=== PATIENT | female | born 1950 | race Caucasian/White ===

== ENCOUNTER → 2017-12-14 12:02 | Outpatient (CLI) | payer OTHER, SELFPAY | PROVIDERS: Visit Provider Nurse Practitioner Family | DX: Z79.899 Other long term (current) drug therapy (principal) ==

== ENCOUNTER → 2018-06-21 11:39 | Outpatient (CLI) | payer MEDICARE, SELFPAY ==
[2018-06-21 13:46] LABS: Amphetamine/Metha Screen,Urine Negative ng/mL (<1000); Barbiturates Screen,Urine Negative ng/mL (<200); Benzodiazepines Screen,Urine Negative ng/mL (<200); Cannabinoid Screen,Urine Negative ng/mL (<50); Cocaine Screen,Urine Negative ng/mL (<300); Methadone Screen,Urine Negative ng/mL (<300); Opiate Screen,Urine Negative ng/mL (<300); Phencyclidine Screen,Urine Negative ng/mL (<25)
== END ==
PROVIDERS: Visit Provider Nurse Practitioner Family
DX: Z79.899 Other long term (current) drug therapy (principal)
CPT/HCPCS: 80305

== ENCOUNTER → 2018-08-30 12:36 | Outpatient (CLI) | payer MEDICARE, SELFPAY ==
--- NOTE | 2018-08-30 12:51 | CI_ITS ---
Cerebrovascular Exam Indications: 780.4 Dizziness and giddiness. IMPRESSIONS 1. The bilateral vertebral arteries are patent with normal antegrade flow. 2. Study suggests less than 20% stenosis involving the right internal carotid artery and the left internal carotid artery. 3. Tortuous carotid arteries seen bilaterally. Carotid duplex study. Complete study and Doppler flow study including spectral analysis, color and kinney scale imaging. Height: Height: 162.6cm. Height: 64in. Weight: Weight: 76.7kg. Weight: 168.6lb. Body mass index: BMI: 29kg/m^2. Body surface area: BSA: 1.88m^2. Location: Vascular laboratory. Patient status: Outpatient. Tables: Arterial flow: + +--------+--------+ Location V sys V ed + +--------+--------+ Right CCA - proximal 74.6cm/s 18.9cm/s + +--------+--------+ Right CCA - distal 63.6cm/s 16.5cm/s + +--------+--------+ Right ECA 84.1cm/s -------- + +--------+--------+ Right ICA - proximal 58.1cm/s 19.6cm/s + +--------+--------+ Right ICA - mid 78.6cm/s 25.9cm/s + +--------+--------+ Right ICA - distal 89.6cm/s 33cm/s + +--------+--------+ Right vertebral 44.8cm/s -------- + +--------+--------+ Left CCA - proximal 77cm/s 20.4cm/s + +--------+--------+ Left CCA - distal 70.7cm/s 18.9cm/s + +--------+--------+ Left ECA 86.4cm/s -------- + +--------+--------+ Left ICA - proximal 57.4cm/s 18.9cm/s + +--------+--------+ Left ICA - mid 69.9cm/s 25.9cm/s + +--------+--------+ Left ICA - distal 75.4cm/s 31.4cm/s + +--------+--------+ Left vertebral 42.4cm/s -------- + +--------+--------+ Velocity ratios: + + + + + + Right, V sys Right, V ed Left, V sys Left, V ed + + + + + + Max ICA/dist CCA 1.41 2 1.07 1.66 + + + + + + (Report amended ) Electronically signed by: Jules Emery [id number]
== END ==
PROVIDERS: Family Provider Internal Medicine Adolescent Medicine; PCP Nurse Practitioner Family; Visit Provider Nurse Practitioner Family
DX: R42 Dizziness and giddiness (principal)
CPT/HCPCS: 93880

== ENCOUNTER → 2018-08-31 14:22 | Outpatient (CLI) | payer MEDICARE, SELFPAY ==
--- NOTE | 2018-08-31 14:25 | MR_ITS ---
MR head/brain wo con HISTORY: Dizziness, vertigo, lightheadedness ITS.REASON: DIZZINESS AND GIDDINESS ORDERING PHYSICIAN: Meme Pat PATIENT AGE: 68 years Comparison: None TECHNIQUE: Standard multiplanar multiecho sequences are performed without contrast. FINDINGS: No midline shift, mass effect, intracranial hemorrhage, or hydrocephalus is evident. There is no evidence of acute infarction. There are scattered periventricular and subcortical T2 white matter hyperintensities which may be related to ischemic gliotic change from microvascular disease. The cerebellopontine angles, cerebellum, and brainstem are unremarkable. There is increased T2 signal involving the right mastoid sinus and the apex of the petrous bone. The semicircular canals on the right are not quite as well-defined as those on the left and could be related to adjacent fluid within the petrous bone. Consider high-resolution CT of the temporal bone for more thorough evaluation. No sinus air-fluid levels evident. The pituitary and optic chiasm and cerebellar tonsils are unremarkable. In the atrium of the right lateral ventricle there is an oval area of T1 isointensity and T2 hyperintensity which does show some increased signal on the diffusion-weighted images and is isointense on the FLAIR images. This measures 9 mm. This is without mass effect and is of questionable clinical significance. IMPRESSION: 1. Right mastoid effusion with increased T2 signal in the right petrous bone as well which could be related to underlying opacification. The semicircular canals on the right are not as well-defined as on the left side. Suggest high resolution temporal bone CT for more thorough evaluation without and with contrast 2. Nonspecific periventricular T2 white matter hyperintensities consistent with ischemic gliotic change from microvascular disease 3. 9 mm lesion of the trigone of the right ventricle. Differential diagnosis would include a subependymoma or choroid plexus papilloma versus a cystic lesion of the choroid plexus or arachnoid cyst. Consider follow-up in 3 months without and with contrast to confirm short-term stability. This is without mass effect. There is no hydrocephalus.
== END ==
PROVIDERS: Family Provider Internal Medicine Adolescent Medicine; PCP Nurse Practitioner Family; Visit Provider Nurse Practitioner Family
DX: R42 Dizziness and giddiness (principal)
CPT/HCPCS: 70551

== ENCOUNTER → 2019-01-10 13:38 | Outpatient (CLI) | payer MEDICARE, SELFPAY ==
--- NOTE | 2019-01-10 | CT_ITS ---
CT facial bones wo/w con CLINICAL INDICATION: Right-sided mastoiditis, vertigo ITS.REASON: ACUTE MASTOIDITIS ORDERING PHYSICIAN: Meme BARRON PATIENT AGE: 68 years COMPARISON: none TECHNIQUE:Axial images obtained without and with 75 mL's Optiray 320 with sagittal and coronal reformats. All CT scans at the facility use one or more dose reduction, viz: automated exposure control, ma/kV adjustment per patient size (including targeted exams where dose is matched to indication, i.e. head), or iterative reconstruction technique. FINDINGS: There is near complete opacification of the right mastoid sinus with suspected air-fluid level. No gross bony erosive changes are evident. There is mild opacification of the epitympanum,. No definite erosion of the scutum. Right middle ear is also opacified. There is aeration of the auditory canal. Nonspecific pinna calcification is noted bilaterally. The middle ear ossicles are grossly unremarkable. There are mild osteoarthritic changes of the TMJs on both sides. The orbits are unremarkable. Scattered small nodes are present in the neck. The internal auditory canals are symmetric with no obvious enhancing mass. IMPRESSION: Right mastoiditis with opacification of the right middle ear.
[2019-01-10 14:45] LABS: Blood Urea Nitrogen 10 mg/dL (7-18); Creatinine,Serum 0.72 mg/dL (0.55-1.02); Estimated Glomerular Filt Rate 81 ml/min (>60); GFR (African American) 98 ML/MIN (>60)
== END ==
PROVIDERS: PCP Nurse Practitioner Family; Visit Provider Nurse Practitioner Family
DX: Z01.812 Encounter for preprocedural laboratory examination (principal); H70.001 Acute mastoiditis without complications, right ear
CPT/HCPCS: 36415; 70488; 82565; 84520

== ENCOUNTER → 2019-09-01 12:43 | Outpatient (CLI) | payer MEDICARE, SELFPAY | PROVIDERS: PCP Nurse Practitioner Family; Referring Provider Nurse Practitioner; Visit Provider Nurse Practitioner Family | DX: Z71.3 Dietary counseling and surveillance (principal); E11.65 Type 2 diabetes mellitus with hyperglycemia | CPT/HCPCS: 97802 ==

== ENCOUNTER → 2019-12-05 15:43 | Outpatient (CLI) | payer MEDICARE, SELFPAY ==
--- NOTE | 2019-12-05 15:47 | MM_ITS ---
PROCEDURE: MM DIG SCREENING MAMM BI W/CAD CLINICAL INDICATION: SCREENING There is no personal or family history of breast cancer. COMPARISON: None, this is a baseline exam TECHNIQUE: Standard CC and MLO images and 3D Tomosynthesis was obtained. R2 CAD reviewed. FINDINGS: Moderate somewhat heterogenic fibroglandular densities are seen in the central portions of both breast. There are are a few benign-appearing microcalcifications in each breast. There is a benign-appearing nodular density near the axillary tail right breast. There are fatty replaced nodes in both axilla. There is no suspicious lesion and no suspicious microcalcifications. IMPRESSION: Moderate breast density with no suspicious lesions seen BI-RAD Category: 2 Benign Finding(s) FOLLOW-UP: 1YR 1 Year Follow-up (A letter has been sent to the patient regarding results of the study.) Dictated by: Dr. Gasper Andujar MD 12/12/2019 10:[address] Gasper Andujar MD in [place] 12/12/2019 10:50
== END ==
PROVIDERS: PCP Nurse Practitioner; Visit Provider Nurse Practitioner
DX: Z12.31 Encounter for screening mammogram for malignant neoplasm of breast (principal)
CPT/HCPCS: 77063; 77067

== ENCOUNTER → 2020-04-06 08:18 | Outpatient (CLI) | payer MEDICARE, SELFPAY ==
[2020-04-06 11:03] LABS: Coronavirus 19 IgG Antibody Negative (Negative); Coronavirus 19 IgM Antibody Negative (Negative)
== END ==
PROVIDERS: Visit Provider Internal Medicine Gastroenterology
DX: Z01.818 Encounter for other preprocedural examination (principal); Z12.11 Encounter for screening for malignant neoplasm of colon
CPT/HCPCS: 36415; 86328

== ENCOUNTER 2020-04-09 09:58 | Day surgery (SDC) | payer MEDICARE, SELFPAY ==
--- NOTE | 2020-04-05 10:23 | SUR.PREOP ---
04/05/2020 @ 1023--PHONE CALL MADE TO PATIENT. PATIENT UNDERSTANDS THAT LAB WORK AND COVID TESTING NEEDS TO BE COMPLETED @ 0800 ON 04/06/2020. PATIENT UNDERSTANDS IF LAB WORK AND COVID-19 TESTS ARE NOT COMPLETED BY 12PM ON THAT DATE, THE SURGERY SCHEDULED WILL BE CANCELLED AND RESCHEDULED FOR ANOTHER TIME.
[2020-04-05 13:30] VITALS: BMI 29.5
[2020-04-09] VITALS (7 sets, daily range): BP systolic 79–182; BP diastolic 54–90; PULSE 64–86; RESP 16–18; TEMP 36.2; O2SAT 93–98
[2020-04-09 10:33] LABS: POC Glucose,Bedside 157 (70-110)
--- NOTE | 2020-04-09 10:44 | HMH.ANESCL ---
[facility] Anesthesia Checklist - Patient Identification Patient Identification: Arm Band, Verbal (Name & ) - Structural Data Admitted From: Home Planned Operative Procedure/s: Colonoscopy Consent for Planned Operative Procedure(s) Verified: Yes Verified Documents: Surgical Consent, History and Physical - NPO Status Verified Time NPO: 00:00 - Chart Verification Results Verified: None (serology) - Additional verifications Anesthesia Reactions: No Hx Blood Transfusions: No Blood Transfusion Reaction: No - Airway Assessment C-Spine Mobility Assessed: Yes TMJ Mobility Assessed: Yes Dentition: Good Dentition - Neurological Assessment Level of Consciousness: Awake, Alert, Appropriate, Follows Commands Hx Seizures: No Numbness or tingling in extremities: No - Anesthesia Plan Anesthesia Risk discussed: Yes Anesthesia Plan: Verified ASA Class: III Anesthesia Type: MAC [facility] History I have reviewed the patient's past medical history: Yes Medical History: Reports:: Diabetes Mellitus Type 2, Hyperlipidemia, Hypertension Denies:: Cancer, Diabetes Mellitus Type 1, Internal Pacemaker, MRSA, Seizures *Have you ever received a pneumonia vaccine?: Yes *Have you received a flu vaccine this season?: No Other Medical History: Denies: Blood Transfusion Reaction Comment:: obesity Anesthesia experience/problems:: none Other Surgeries: No: Pacemaker Amputation: No Fractures: No Comment: CTR, bunionectomy - *Social History Educational Level: Completed High School Smoking Status: Never smoker Alcohol Intake: never Substance Use Type: denies use *Occupational Status:: retired Housing: house Household Members: spouse *Travel in the last 8 weeks: None Family Hx:: Cancer, Diabetes
--- NOTE | 2020-04-09 11:11 | HMH.PROC ---
[facility] Procedure Note Procedure Note:: Colonoscopy Procedure Report: Colonoscopy with cold snare polypectomy Endoscopist: Jasper Dick II, MD Referring physician: SUZY Banks Date of Procedure: April 09, 2020 Equipment: Olympus 180 variable stiffness pediatric colonoscope Sedation: MAC sedation Indication: Mrs. Ruiz is a 69-year-old female who is here for diagnostic colonoscopy secondary to a positive Cologuard test recently. She does state that her mother had colon cancer at the age of 87. The patient's recent blood work was otherwise normal. She reports no rectal bleeding or melena. She reports no abdominal pain or weight loss. She does have regular bowel function but did have some intermittent diarrhea that occurred just after the COVID quarantine. The patient has never had a colonoscopy Procedure: Prior to the procedure, a history and physical exam was performed, and patient's medications and allergies were reviewed. The risks, benefits and alternatives of the sedation and procedure were discussed with the patient. All questions were answered and informed consent was obtained. The patient was brought to the procedure room. Patient identification and proposed procedure were verified by the physician and the nurse. The patient was placed in a left lateral decubitus position and the scope was passed under direct vision. Throughout the procedure, the patient's blood pressure, pulse, and oxygen saturations were monitored continuously. The colonoscopy was accomplished without difficulty. The patient tolerated the procedure well. Findings: On digital rectal examination there was normal rectal tone. There were no external hemorrhoids. The colonoscope was introduced through the anal canal to the rectum and advanced to the cecum. The ileocecal valve and appendiceal orifice were identified. The scope was advanced a short distance into the ileum which appeared grossly normal. The scope was then withdrawn into the colon. There were a total of 17 colon polyps found within the colon (cecum x3 (3, 5 and 8 mm), ascending x5 (3, 4, 4, 4 and 6 mm), transverse x4 (3, 3, 4 and 4 mm), descending x2 (4 and 6 mm) and sigmoid x3 (4, 7 and 8 mm)). All of these polyps were removed via cold snare polypectomy. There were scattered diverticuli throughout the colon but more predominantly in the descending and sigmoid colon (LEFT colon). The rectum itself was normal. Upon retroflexion within the rectum there were grade 1-2 internal hemorrhoids. The preparation was good throughout with Buda Preparation Score of 8 out of 9. The cecal time was 20 minutes. Impression: 1. Colonic polyps x17 2. Pandiverticulosis 3. Grade 1-2 internal hemorrhoids Plan: I will follow-up the polyp histology and recommend repeat surveillance colonoscopy again in 1 year based upon the number and size of adenomatous colon polyps. I would encourage bulk fiber supplementation on a long-term daily maintenance basis.
== END 2020-04-09 12:12 | disposition home or self-care (01) ==
LOC: OUTP 10:00
PROVIDERS: PCP Internal Medicine Adolescent Medicine; Visit Provider Internal Medicine Gastroenterology
PROC: 0DJD8ZZ Inspection of Lower Intestinal Tract, Via Natural or Artificial Opening Endoscopic (ICD-10-PCS; CPT 45378; principal; 2020-04-09 11:00)
DX: Z80.0 Family history of malignant neoplasm of digestive organs (principal); K63.5 Polyp of colon; K57.30 Diverticulosis of large intestine without perforation or abscess without bleeding; K64.0 First degree hemorrhoids; I10 Essential (primary) hypertension; E78.5 Hyperlipidemia, unspecified; E11.9 Type 2 diabetes mellitus without complications; Z79.4 Long term (current) use of insulin; Z79.899 Other long term (current) drug therapy
CPT/HCPCS: 45385; 82962; 88305

== ENCOUNTER → 2021-06-04 13:06 | Outpatient (CLI) | payer MEDICARE, SELFPAY ==
--- NOTE | 2021-06-04 13:12 | MM_ITS ---
PROCEDURE INFORMATION: Exam: MG Screening 3D Mammography Exam date and time: 06/04/2021 1:12 PM Age: 70 years old Clinical indication: screening mammogram TECHNIQUE: Imaging protocol: Screening tomosynthesis and 2D mammography including computer-aided detection (CAD) when performed. COMPARISON: MG MM DIG SCREENING MAMM BI W/CAD 12/05/2019 3:51 PM FINDINGS: MAMMOGRAPHY: Breast composition: The breast tissue is heterogeneously dense, which may obscure small masses. Mass: None. Architectural distortion: No new or suspicious architectural distortion. Calcifications: Stable benign-appearing calcifications are present. No new or suspicious cluster of microcalcifications have developed. Asymmetric density: No new or suspicious asymmetric density is present Skin thickening: None. Axillary adenopathy: None. IMPRESSION: No mammographic evidence of malignancy. Recommend annual screening mammography unless otherwise clinically indicated. ASSESSMENT: BI-RADS category 2: Benign
== END ==
PROVIDERS: PCP Internal Medicine Adolescent Medicine; Visit Provider Nurse Practitioner
DX: Z12.31 Encounter for screening mammogram for malignant neoplasm of breast (principal)
CPT/HCPCS: 77063; 77067

== ENCOUNTER → 2021-07-04 10:56 | Outpatient (CLI) | payer MEDICARE, SELFPAY ==
--- NOTE | 2021-07-04 11:02 | XR_ITS ---
PROCEDURE: XR KNEE LT 3V CLINICAL INDICATION: PAIN IN LT KNEE COMPARISON: No exams were available for comparison FINDINGS: No fracture or dislocation. No lytic or blastic change. There is normal mineralization. Mild osteoarthritic changes are present involving the medial compartment with minimal osteoarthritic change of the patellofemoral joint. IMPRESSION: Osteoarthritic changes Dictated by: Jules Emery MD 07/04/2021 11:51 Jules Emery MD in [place] 07/04/2021 11:51
== END ==
PROVIDERS: PCP Nurse Practitioner; Visit Provider Nurse Practitioner
DX: M25.562 Pain in left knee (principal)
CPT/HCPCS: 73562

== ENCOUNTER 2022-07-13 11:29 | Emergency (ER) | payer MEDICARE, SELFPAY ==
[2022-07-13 11:30] VITALS: BP 208/110; PULSE 75; RESP 20; TEMP 36.9; O2SAT 100; BMI 30.6
--- NOTE | 2022-07-13 12:03 | CT_ITS ---
PROCEDURE INFORMATION: Exam: CT Abdomen And Pelvis Without Contrast Exam date and time: 07/13/2022 12:14 PM Age: 72 years old Clinical indication: Abdominal pain; Flank; Left lower quadrant (llq) TECHNIQUE: Imaging protocol: Computed tomography of the abdomen and pelvis without contrast. Radiation optimization: All CT scans at this facility use at least one of these dose optimization techniques: automated exposure control; mA and/or kV adjustment per patient size (includes targeted exams where dose is matched to clinical indication); or iterative reconstruction. COMPARISON: No relevant prior studies available. FINDINGS: Lungs: Atelectatic changes noted within both lung bases. Diaphragm: Small hiatal hernia. Liver: Normal. No mass. Gallbladder and bile ducts: Normal. No calcified stones. No ductal dilation. Pancreas: Normal. No ductal dilation. Spleen: The spleen demonstrates punctate calcifications, consistent with remote granulomatous organism exposure. Adrenal glands: Normal. No mass. Kidneys and ureters: Left perinephric fat stranding is present. This may be consistent with early pyelonephritis. Clinical correlation is needed. No renal calcifications or obstructive uropathy. Stomach and bowel: A large amount of stool is noted throughout the colon. Appendix: No evidence of appendicitis. Intraperitoneal space: Normal. No significant fluid collection. Vasculature: Retroaortic left renal vein. Lymph nodes: There is no evidence of mesenteric lymphadenopathy. Urinary bladder: There is mild bladder wall thickening consistent with incomplete distension, chronic outflow obstruction, or cystitis. Reproductive: Unremarkable as visualized. Bones/joints: The lumbar spine demonstrates mild degenerative changes at multiple levels. Soft tissues: Soft tissues are normal. Other findings: Lack of IV contrast limits the study as well as decreases sensitivity and specificity. IMPRESSION: 1. Left perinephric fat stranding is present. This may be consistent with early pyelonephritis. Clinical correlation is needed. 2. No renal calcifications or obstructive uropathy. 3. Atelectatic changes noted within both lung bases. 4. There is mild bladder wall thickening consistent with incomplete distension, chronic outflow obstruction, or cystitis. 5. A large amount of stool is noted throughout the colon. 6. The lumbar spine demonstrates mild degenerative changes at multiple levels.
--- NOTE | 2022-07-13 12:19 | PC.NURSE ---
PT TO CT AT THIS TIME
--- NOTE | 2022-07-13 12:29 | ECG_ITS ---
APPROVED REPORT Exam: Resting ECG HR:62 bpm ECG Measurements Heart Rate 62 AXES VA 165 P 33 QRSd 83 QRS -8 QT 403 T 46 QTc 407 Conclusion SINUS RHYTHM NORMAL ECG UNCONFIRMED REPORT Electronically signed by : Omari Olmos MD 07/14/2022 17:18:33
--- NOTE | 2022-07-13 12:31 | PC.NURSE ---
[address] AT THIS TIME
--- NOTE | 2022-07-13 12:33 | HMH.EDGENADL ---
Discharge Plan Disposition Patient Disposition: Home, Self-Care Condition: Good Prescriptions Prescriptions: New cefdinir 300 mg capsule 300 mg PO BID 10 Days Qty: 20 0RF No Action lisinopril 20 MG tablet 20 mg PO DAILY levothyroxine 25 MCG tablet 25 mcg PO DAILY metformin 1,000 MG tablet 1,000 mg PO BID insulin glargine 100 UNIT/ML solution 20 unit SQ HS Referrals Follow up/Referrals: Domingo Norwood MD [Primary Care Provider] - See instructions Activity Restrictions/Add. Instructions Additional Instructions/Restrictions: Take antibiotic as prescribed. See your physician in 2-3 days for follow up and culture results. Return immediately if you have an uncontrollable fever greater than 102 degrees, severe back or abdominal pain, inability to urinate, or repetitive vomiting. Clinical Impressions Clinical Impression: Right flank pain Instructions Patient Instructions: DI for Low Back Pain Discharge ED Provider: Constantino Reyez General Adult HPI General Chief complaint: Back Pain/Injury Stated complaint: pain on R side on back Time Seen by Provider: 07/13/22 12:34 Mode of Arrival: Ambulatory Source of Information: Patient Limitations: No Limitations Description of Symptoms (Recalled from ER Triage Doc. by RN): PT REPORTS RIGHT SIDED LOW BACK PAIN, BEGAN ABOUT 2 DAYS AGO History of Present Illness HPI narrative: 2-day history of right sided lumbar back pain that she describes as a pressure, it waxes and wanes, this morning was associated with nausea. No injury or unusual activity. Pain does not worsen with movement or activity. No abdominal pain. No urinary symptoms. No fever. No history of kidney stones. She has had a kidney infection in the past. States she has a history of sludge in her gallbladder. Related Data Home Medications Medication Instructions Recorded Confirmed insulin glargine 100 unit/mL 20 unit SQ HS Diabetes 04/05/20 04/09/20 subcutaneous solution levothyroxine 25 mcg tablet 25 mcg PO DAILY thyroid 04/05/20 04/09/20 lisinopril 20 mg tablet 20 mg PO DAILY bp 04/05/20 04/09/20 metformin 1,000 mg tablet 1,000 mg PO BID Diabetes 04/05/20 04/09/20 Previous Rx's Medication Instructions Recorded cefdinir 300 mg capsule 300 mg PO BID 10 days #20 caps 07/13/22 Allergies Allergy/AdvReac Type Severity Reaction Status Date / Time No Known Allergies Allergy Verified 04/05/20 13:15 [facility] Medical History (Updated 07/13/22 @ 13:12 by Constantino Reyez MD) Diabetes mellitus, type 2 Hypothyroid Surgical History (Updated 07/13/22 @ 12:41 by Luli Potter RN) H/O carpal tunnel repair History of tonsillectomy Social History (Updated 07/13/22 @ 12:42 by Luli Potter RN) Smoking Status: Never smoker second hand exposure: No alcohol intake: never substance use type: denies use current occupational status: retired Travel in the last 8 weeks: None household members: spouse housing: house caffeine: Yes ROS Obtained: Yes Systems reviewed as appropriate & no additional complaints except as documented Constitutional Constitutional: Denies fever(s) Cardiovascular Cardiovascular: Denies chest pain Respiratory Respiratory: Denies shortness of breath Gastrointestinal Gastrointestingal: Reports nausea; Denies abdominal pain, diarrhea or vomiting Genitourinary Female Genitourinary: Denies difficulty voiding, Denies dysuria, Reports flank pain, Denies urinary frequency and Denies urinary urgency Musculoskeletal Musculoskeletal: Reports back pain Physical Exam General General appearance: alert and in no apparent distress Head Head exam: atraumatic and normocephalic Eye Eye exam: Present normal appearance and EOMI ENT ENT exam: Present mucous membranes moist Neck Neck exam: Present normal inspection and trachea midline Chest Chest inspection: Present normal inspection and symmetric chest wall rise
--- NOTE | 2022-07-13 12:35 | PC.NURSE ---
ED MD AT BEDSIDE FOR EVALUATION
[2022-07-13 12:40] LABS: Microscopic, Urine URINE MICROSCOPIC (MICROSCOPIC)
[2022-07-13 12:46] LABS: Basophils # 0.2 K/mm3 (0-0.2); Basophils % 1.9 % (0.1-2.0); Eosinophils # 0.5 K/mm3 (0.0-0.4); Eosinophils % 5.6 % (0.1-12.0); Hemoglobin 14.6 g/dL (12.2-16.2); Lymphocytes # 2.6 K/mm3 (0.7-4.5); Lymphocytes % 27.9 % (10-50); Mean Corpuscular Hemoglobin 28.5 pg (27.0-31.2); Mean Corpuscular Volume 91.8 fl (81-99); Mean Platelet Volume 8.4 fl (7.4-10.4); Monocytes # 0.6 K/mm3 (0.1-1.0); Monocytes % 6.6 % (1.7-9.3); Neutrophils # 5.4 K/mm3 (1.8-7.8); Neutrophils % 57.9 % (37.0-80.0); Platelet Count 348 K/mm3 (142-424); Red Blood Count 5.12 M/mm3 (4.20-5.40); Red Cell Distribution Width 12.8 % (11.5-17.5); White Blood Count 9.3 K/mm3 (4.8-10.8)
[2022-07-13 12:47] LABS: Appearance,Urine CLEAR (Clear); Bilirubin,Urine Negative (Negative); Blood, Urine Negative (Negative); Color,Urine YELLOW (Yellow); Glucose,Urine (UA) Negative (Negative); Ketones,Urine Negative (Negative); Leukocyte Esterase,Urine 1+ (Negative); Nitrate,Urine Negative (Negative); PH,Urine 5.5 (5.0-8.5); Protein,Urine Negative (Negative); Specific Gravity, Urine 1.025 (1.005-1.030); Urobilinogen,Urine 0.2 EU/dl (0.2)
[2022-07-13 12:54] LABS: Lipase 94 U/L (23-300)
[2022-07-13 12:56] LABS: Alanine Aminotransferase 26 U/L (12-78); Albumin Level 4.5 g/dl (3.5-5.0); Albumin/Globulin Ratio 1.3 (1.1-1.8); Alkaline Phosphatase 132 U/L (38-126); Anion Gap 10.9 mEq/L (5-15); Aspartate Amino Transferase 34 U/L (14-36); Bilirubin,Total 0.7 mg/dl (0.2-1.3); Blood Urea Nitrogen 11 mg/dl (7-17); Calcium 9.8 mg/dl (8.4-10.2); Carbon Dioxide 27 mmol/L (22.0-30.0); Chloride 107 mmol/L (98-107); Creatinine Clearance Estimated 64 mL/min (50-200); Estimated Glomerular Filt Rate 82 ml/min (>60); GFR (African American) 100 ML/MIN (>60); Globulin 3.6 g/dL (1.3-3.2); Glucose 121 mg/dl (74-100); Potassium 3.9 mmoL/L (3.5-5.1); Sodium 141 mmol/L (136-145); Total Protein,Serum 8.1 g/dl (6.3-8.2)
[2022-07-13 13:02] LABS: Bacteria,Urine Trace /lpf
--- NOTE | 2022-07-13 13:07 | PC.NURSE ---
ED MD AT BEDSIDE UPDATING PT ON POC
[2022-07-13 13:13] LABS: Troponin I < 0.01 ng/ml (0.00-0.034)
[2022-07-13 13:51] VITALS: BP 180/84; PULSE 58; RESP 16; TEMP 36.7; O2SAT 97
== END 2022-07-13 13:53 | disposition home or self-care (01) ==
PROVIDERS: Emergency Provider Emergency Medicine; PCP Internal Medicine Adolescent Medicine
DX: M54.50 Low back pain, unspecified (principal); R10.9 Unspecified abdominal pain
CPT/HCPCS: 74176; 80053; 81001; 83690; 84484; 85025; 87086; 93005; 96361; 96374; 96375; 99284; J0696

== ENCOUNTER → 2022-07-22 08:33 | Outpatient (CLI) | payer MEDICARE, SELFPAY ==
--- NOTE | 2022-07-22 08:38 | MM_ITS ---
PROCEDURE INFORMATION: Exam: MG Bilateral Screening 3D Mammography Exam date and time: 07/22/2022 8:43 AM Age: 72 years old Clinical indication: Screening examination TECHNIQUE: Imaging protocol: Bilateral Screening tomosynthesis and 2D mammography including computer-aided detection (CAD) when performed. COMPARISON: 1. MG MM DIG SCREENING MAMM BI W/CAD 06/04/2021 1:14 PM 2. MG MM DIG SCREENING MAMM BI W/CAD 12/05/2019 3:51 PM FINDINGS: MAMMOGRAPHY: Breast composition: The breasts are heterogeneously dense, which may obscure small masses. Mass: No suspicious masses. Architectural distortion: No suspicious distortion. Calcifications: No suspicious calcifications. Asymmetric density: None. Skin thickening: None. Axillary adenopathy: None. IMPRESSION: No mammographic evidence of malignancy. Annual screening is recommended unless otherwise clinically indicated. ASSESSMENT: BI-RADS Category 1: Negative
== END ==
PROVIDERS: PCP Internal Medicine Adolescent Medicine; Visit Provider Nurse Practitioner
DX: Z12.31 Encounter for screening mammogram for malignant neoplasm of breast (principal)
CPT/HCPCS: 77063; 77067